=== PATIENT | female | born 1985 | race Caucasian/White ===

== ENCOUNTER 2019-09-08 16:20 | Emergency (ER) | payer MEDICAID ==
[~2019-09-08] VITALS: Ht 170.2 cm; Wt 50.5 kg
[2019-09-08 16:33] VITALS: BP 120/93
[2019-09-08] MEDS ORDERED: FLUORESCEIN OPHTHALMIC 1 MG STRIP ONE (16:51)
[2019-09-08] MEDS ORDERED: PROPARACAINE OPHTH 0.5%, 15ML ONE (16:51)
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
[2019-09-08] MEDS ORDERED: FLUORESCEIN OPHTHALMIC 1 MG STRIP OP ONE (17:00)
[2019-09-08] MEDS ORDERED: PROPARACAINE OPHTH 0.5%, 15ML EACHEYE ONE (17:00)
--- NOTE | 2019-09-08 17:03 | NUR ---
edmd at bedside to evaluate at this time.
--- NOTE | 2019-09-08 17:26 | NUR ---
pt to ct at this time.
--- NOTE | 2019-09-08 17:32 | NUR ---
pt back to room from ct at this time.
== END 2019-09-08 18:45 | disposition home or self-care (01) ==
LOC: ED 17:39
DX: S05.02XA Injury of conjunctiva and corneal abrasion without foreign body, left eye, initial encounter (principal); X58.XXXA Exposure to other specified factors, initial encounter; Y93.89 Activity, other specified; Y92.89 Other specified places as the place of occurrence of the external cause; Y99.8 Other external cause status
CPT/HCPCS: 70480; 99284